=== PATIENT | male | born 1960 | race Caucasian/White ===

== ENCOUNTER → 2016-12-12 | Day surgery (SDC) | payer BC ==
[2016-12-11 16:11] VITALS: Ht 175.3 cm; Wt 81.8 kg
[~2016-12-12] VITALS: Ht 175.3 cm; Wt 81.8 kg
[~2016-12-12] MED LIST: 500ML BSSPLUS 0.5ML EPI1:1000 IRRIG ONE; ACETAMINOPHEN 325 MG TAB ONE; ACETAMINOPHEN 325 MG TAB PO PRN; ATROPINE SULFATE 0.1 MG/ML 5ML SYR IV PRN; ATROPINE SULFATE 1% OP OINT PER APPLICATION CHARGE ONE; AcetaZOLAMIDE 250 MG TAB PO ONE; AcetaZOLAMIDE 500 MG CAPCR ONE; BSS FLUSH ONE; BUPIVACAINE HCL 0.75% 10 ML AMP/VIAL ONE; CEFAZOLIN SOD 1 GM VIAL ONE; DEXAMETHASONE SOD INJ 4 MG/ML VIAL ONE; ESCI10TA17 PO; EpHEDrine SULFATE INJ 50 MG/ML AMP IV PRN; EpINEphrine INJ 1MG/ML AMP 1 MG/ML AMP ONE; FENTANYL CITRATE INJ 50 MCG/1 ML 2 ML VIAL IV PRN; FENTANYL CITRATE INJ 50 MCG/1 ML 2 ML VIAL ONE; FLUMAZENIL 0.1 MG/1 ML 10 ML VIAL IV PRN; HYALURONIDASE HUMAN 150 UNIT/ML INJ ONE; HYDROmorphone INJ 2 MG/ML SYR/VIAL IV PRN; INDOCYANINE GREEN 25 MG/10 ML ONE; LABETALOL HCL IV 5 MG/ML 20ML IV PRN; LACTATED RINGER'S 1000ML 500 ML IV SCH; LIDOCAINE HCL 2% 2 ML VIAL (20MG/ML) ONE; LIDOCAINE MPF 4% INJ INJ ONE; MEPERIDINE HCL 25 MG/ML CARP IV PRN; MIDAZOLAM HCL 1 MG/ML 2ML VIAL ONE; NALOXONE HCL 0.4 MG/1 ML VIAL/CARP IV PRN; NEOMYCIN/POLYMYX/DEXAMETH OP OINT PER APP CHARGE ONE; OCUCOAT 1 ML SOLN IO ONE; ONDANSETRON INJ 2 MG/ML 2 ML VIAL IV PRN; ONDANSETRON INJ 2 MG/ML 2 ML VIAL ONE; PANT40TA PO; PHENYLEPHRINE 100MCG/ML 5ML SYR IV PRN; PHENYLEPHRINE HCL 10% OP SOLN PER DROP CHARGE ONE; PROPARACAINE 0.5% OP SOLN PER DROP CHARGE OPR SCH; PROPOFOL IV EMULSION 10 MG/ML 20 ML VIAL IV ONE; TIMOLOL MALEATE 0.5% OP SOLN PER DROP CHARGE ONE; TRIAMCINOLONE ACETONIDE OPHTH 40 MG/ML VIAL STERILE IO ONE; TROPICAMIDE 1% OP SOLN PER DROP CHARGE OPR SCH; VANCOMYCIN 1 GM INJ ONE
[2016-12-12] MEDS: PHENYLEPHRINE HCL 2.5% OP SOLN PER DROP CHARGE OPR SCH ×2 (10:16→10:21)
--- NOTE | 2016-12-12 11:11 | History & Physical Bridge - [place] ---
H&P Re-Evaluation Bridge Note: I have examined the patient, reviewed the History & Physical and in the interval since the performance of the History & Physical I have noted the following changes of clinical significance: No changes noted
[2016-12-12 12:31] VITALS: TEMP 36.8
--- NOTE | 2016-12-12 12:31 | Discharge Instructions-SurgCtr ---
Discharge Instructions Visit Reason for Visit: Right Eye Retinal Detachment Discharge Discharge Diagnosis / Problem: same Discharge Goals Goal(s): Improve function Activity Recommendations Activity Limitations: per Instructions/Follow-up section Anesthesia . Post Anesthesia Instructions: If you have had General Anesthesia or IV Sedation: * Do not drive today. * Resume driving when surgeon permits. * Do not make important decisions or sign legal documents today. * Call surgeon for: 1. Temperature elevations greater than 101 degrees F. 2. Uncontrollable pain. 3. Excessive bleeding. 4. Persistent nausea and vomiting. 5. Medication intolerance (nausea, vomiting or rash). * For nausea and vomiting use only clear liquids such as: tea, soda, bouillon until nausea subsides, then gradually increase diet as tolerated. * If you have any concerns or questions, call your surgeon's office. If physician is unavailable and it is an emergency, call 911 or go to the nearest emergency room. . Instructions / Follow-Up Instructions / Follow-Up * May take Tylenol if needed for discomfort. * Do NOT lay flat on back and position head as follows: chin down/face down as much as possible for rest of day then upright face forward. Sleep on stomach with head turned toward right or can sleep on left side. * Do NOT remove green bracelet until instructed to do so by your surgeon and follow these precautions: * No air travel * No travel above 2500 feet * No nitrous oxide (N2O). * Do NOT remove eye shield. * NO straining, heavy lifting (>15 pounds) or bending below waist. * Avoid getting water or soap directly into operative eye. * Do NOT rub eye. If you experience increasing eye pain not relieved by medication, please contact us immediately at [phone]. If you are unable to reach someone at the above number, call [phone] and ask to speak with the EYE DOCTOR CHISEL WORKER. Inform them that you are a Dr. Mccallum patient who had recent surgery. Diet Recommendations Home Diet: resume previous diet Procedures Procedures Performed: Right Eye 23 Gauge Vitrectomy, Endolaser, SF6 Gas Instillation Pending Studies Studies pending at discharge: no Medical Emergencies . Who to Call and When: Medical Emergencies: If at any time you feel your situation is an emergency, please call 911 immediately. . Non-Emergent Contact Non-Emergency issues call your: Hand Turner . . "Provider Documentation" section prepared by Alfredo Mccallum.
--- NOTE | 2016-12-12 12:36 | [facility] Operative Report ---
Operative Report PREOPERATIVE DIAGNOSIS: Retinal detachment, right eye. ICD 10: RD OD multiple breaks H33.021 POSTOPERATIVE DIAGNOSIS: same. PROCEDURE: 1. Pars plana vitrectomy, 23 gauge. 2. Fluid-air exchange. 3. Endolaser. 4 Air-gas exchange with SF6 20%. All to the right eye. CPT CODE: 32044 SURGEON: Alfredo Mccallum D.O. COMPLICATIONS: None. ESTIMATED BLOOD LOSS: None. SPECIMENS: None. ANESTHESIA: Retrobulbar block and MAC. INDICATIONS FOR PROCEDURE: Surgery is indicated to decrease risk of vision loss and potentially improve vision. CONSENT: The risks, benefits and alternatives were discussed with the patient including but not limited to decreased visual acuity, failure to achieve desired results, loss of the eye, infection, pain, glaucoma, lens changes, retinal tears, retinal detachment, the need for more procedures, drooping of the eyelid, blindness, and double vision. The patient is aware of risks and consents to the surgery. Consent is signed and on the chart. OPERATION AND FINDINGS: The patient was brought to the operating room where the patient was identified by name, date, and medical record number. The surgical site was confirmed with the informed written consent. The patient was sedated by the anesthesiology team after which a 50:50 mixture of 4% lidocaine and 0.75% bupivacaine with hyaluronidase was administered in a standard retrobulbar fashion. A total of 4 ml was administered without difficulty. The patient was then prepped and draped in the usual sterile manner for retinal surgery. A wire lid speculum was placed and an [place] 23-gauge trocar cannula system was employed. The inferior temporal trocar cannula was first placed in an angled fashion 3.75mm posterior to the surgical limbus and the infusion cannula was inserted into this cannula after which the intravitreal position was verified prior to turning the infusion on. Two more trocar cannulas were then inserted in an angled fashion, one in the superior temporal, and one in the superior nasal quadrant both 3.75mm posterior to the surgical limbus. A light pipe and vitrector were then introduced into the eye and the BIOM wide angle viewing system was brought into place. Posterior inspection revealed a retinal detachment from 10-1 o'clock with the inciting retinal breaks at 10:30, 11, 12 and 12:30 o'clock. The detachment extended to 2 disc diameters from the superior arcade. There were also noted retinal tears inferiorly at 5 and 7 o'clock. Standard core vitrectomy was performed and the vitreous was insured to be totally detached from the posterior pole with the aid of the vitrector. The vitreous base was shaved for 360 degrees. Fluid air exchange was performed and the subretinal fluid was drained through a small retinotomy site that was fashioned superior to the arcade. Endolaser was then used to place laser around the inciting retinal breaks and the drainage retinotomy and all retinal breaks and for 360 along the vitreous base. Next, an air gas exchange was performed with SF620% for a complete fill of the eye. The trocar cannulas were then removed and found to be air tight. The intraocular pressure was found to be within normal limits by palpation and subconjunctival injections of Kefzol and dexamethasone were administered inferiorly and superiorly. The wire lid speculum was removed. Maxitrol, atropine and timolol were applied to the surface of the eye. A light patch and shield were taped over the surface of the eye and the patient left the Operating Room in stable condition having tolerated the procedure well. DISPOSITION: A gas bracelet was placed on the patient's wrist and gas precautions reviewed as well as the positioning instructions. The patient has an appointment the following morning in the Ophthalmology Clinic. The patient is to call immediately if there are any problems overnight. I attest to the content of the Intraoperative Record and any orders documented therein. Any exceptions are noted below.
--- NOTE | 2016-12-12 12:53 | Anesthesia Progress Nt - [facility] ---
Anesthesia Post Op Note Date & Time Dec 12, 2016 at 12:53 Vital Signs Pain Intensity: 4 Vital Signs Past 12 Hours Date Time Temp Pulse Resp B/P Pulse Ox O2 Delivery O2 Flow Rate FiO2 12/12/16 12:31 36.8 68 16 155/94 96 Room Air 12/12/16 09:55 36.7 84 16 158/84 97 Room Air Notes Mental Status: alert / awake / arousable, participated in evaluation Pt Amnestic to Procedure: Yes Nausea / Vomiting: adequately controlled Pain: adequately controlled Airway Patency, RR, SpO2: stable & adequate BP & HR: stable & adequate Hydration State: stable & adequate Anesthetic Complications: no major complications apparent
[2016-12-12 13:06] VITALS: BP 156/99; PULSE 54; O2SAT 96
== END | disposition home or self-care (01) ==
LOC: X.SURG 09:42
PROVIDERS: ATTEND Ophthalmology
DX: H33.021 Retinal detachment with multiple breaks, right eye (principal)